=== PATIENT | male | born 1950 | race Caucasian/White ===

== ENCOUNTER 2021-06-12 08:51 | Outpatient (RCR) | payer MEDICARE, SELFPAY | END 2021-06-20 10:46 | disposition home or self-care (01) | LOC: HO.WCC 08:51 | PROVIDERS: PCP Internal Medicine; Visit Provider Surgery | DX: E11.610 Type 2 diabetes mellitus with diabetic neuropathic arthropathy (principal) | CPT/HCPCS: 99211 ==

== ENCOUNTER 2021-12-05 09:52 | Outpatient (REF) | payer MEDICARE, SELFPAY | END 2021-12-05 09:53 | disposition home or self-care (01) | LOC: HO.BBR 09:52 | PROVIDERS: Visit Provider Internal Medicine Gastroenterology | DX: Z13.89 Encounter for screening for other disorder (principal) ==

== ENCOUNTER 2022-04-14 10:09 | Outpatient (REF) | payer MEDICARE, SELFPAY | END 2022-04-14 10:10 | disposition home or self-care (01) | LOC: HO.BBR 10:09 | PROVIDERS: Visit Provider Internal Medicine Gastroenterology | DX: Z13.89 Encounter for screening for other disorder (principal) ==

== ENCOUNTER 2022-08-14 08:52 | Outpatient (REF) | payer MEDICARE, SELFPAY | END 2022-08-14 08:53 | disposition home or self-care (01) | LOC: HO.BBR 08:52 | PROVIDERS: Visit Provider Internal Medicine Gastroenterology | DX: Z13.89 Encounter for screening for other disorder (principal) ==

== ENCOUNTER 2022-12-16 09:57 | Outpatient (REF) | payer MEDICARE, SELFPAY | END 2022-12-16 09:58 | disposition home or self-care (01) | LOC: HO.BBR 09:57 | PROVIDERS: Visit Provider Internal Medicine Gastroenterology | DX: Z13.89 Encounter for screening for other disorder (principal) ==

== ENCOUNTER 2023-05-05 09:58 | Outpatient (REF) | payer MEDICARE, SELFPAY | END 2023-05-05 09:59 | disposition home or self-care (01) | LOC: HO.BBR 09:58 | PROVIDERS: Visit Provider Internal Medicine Gastroenterology | DX: Z13.89 Encounter for screening for other disorder (principal) ==